=== PATIENT | female | born 1980 | race Caucasian/White ===

== ENCOUNTER → 2016-07-05 | Outpatient (CLI) | payer BC ==
[~2016-07-05] MED LIST: APPL300T PO; CRAN400T3 PO; NORCOTAB PO; PEPT525S PO; ROLA1CHW PO; VITMTA PO
--- NOTE | 2016-07-06 03:45 | REP ---
Clinical: Placental location. Comparison: 05/11/2016 . Findings: Examination demonstrates a single live intrauterine in breech presentation. motion is identified by technologist. Placenta is noted posteriorly and grade one without evidence for placenta previa or abruption. Amniotic fluid volume is normal. Cervix measures 3.4 cm in length and appears closed. No evidence for nuchal cord. Gestational age by first ultrasound 31 weeks 5 days with MU 09/01/2016 . FHR equals 141 beats per minute. Amniotic fluid index equals 12.0 cm. Impression: Posterior grade 1 placenta without evidence for placenta previa or abruption. Signed by Thor Rodríguez MD 07/06/2016 03:36 A
== END ==
LOC: M SMT 13:58
PROVIDERS: ATTEND Advanced Practice Midwife
DX: Z34.82 Encounter for supervision of other normal pregnancy, second trimester (principal)

== ENCOUNTER → 2016-08-01 | Outpatient (REF) | payer BC | LOC: M LAB REF 12:45 | PROVIDERS: ATTEND Specialist | DX: Z34.83 Encounter for supervision of other normal pregnancy, third trimester (principal) ==

== ENCOUNTER 2016-08-27 07:35 | Inpatient (IN) | payer BC ==
[~2016-08-27] VITALS: Ht 162.6 cm; Wt 126.0 kg
[2016-08-27] VITALS (9 sets, daily range): BP systolic 108–143; BP diastolic 52–77
[2016-08-27] MEDS ORDERED: TUMS500C PO (07:39)
[2016-08-27] MEDS ORDERED: TYLE325T5 PO (07:39)
[2016-08-27] MEDS ORDERED: LR 1,000 ML IV SCH ×2 (07:45→11:30)
[2016-08-27] MEDS ORDERED: BICITRA 30ML SOLN UDC PO ONE (07:45)
[2016-08-27] MEDS ORDERED: LR 800 ML IV ONE (07:45)
[2016-08-27] MEDS: PRENATAL VITAMIN TAB PO SCH (09:00)
[2016-08-27 09:05] LABS: MEAN CORPUSCULAR HEMOGLOBIN 32.1 pg (27.0-33.0); MEAN CORPUSCULAR HGB CONC 34.8 g/dl (32.0-36.5); MEAN CORPUSCULAR VOLUME 92.1 fl (80.0-96.0); RED CELL DISTRIBUTION WIDTH 13.6 % (11.5-14.5); WHITE BLOOD COUNT 11.2 K/mm3 (4.0-10.0)
[2016-08-27] MEDS ORDERED: NALOXONE INJ 0.4 MG/1 ML VIAL (J2310) IV PRN ×2 (09:59)
[2016-08-27] MEDS ORDERED: NALBUPHINE HCL 10 MG/ML AMP (J2300) IV PRN ×2 (09:59→11:30)
[2016-08-27] MEDS ORDERED: METOCLOPRAMIDE INJ 10MG/2ML VIAL (J2765) IV PRN (09:59)
[2016-08-27] MEDS ORDERED: ONDANSETRON 4MG/2ML VIAL (J2405) IV PRN ×2 (09:59→11:30)
[2016-08-27] MEDS ORDERED: OXYTOCIN INJ 10 UNITS/ML VIAL (J2590) As Ordered ONE (10:23)
[2016-08-27] MEDS ORDERED: MORPHINE PRES-FREE INJ 10 MG/10 ML VIAL (J2274) As Ordered ONE (10:23)
[2016-08-27] MEDS ORDERED: PHENYLephrine HCL 500 MCG/5 ML (100MCG/ML) SYRINGE (J2370) As Ordered ONE (10:23)
[2016-08-27] MEDS ORDERED: dexameTHASONE 4 MG/ML 1ML VIAL (J1100) As Ordered ONE (10:23)
[2016-08-27] MEDS ORDERED: KETOROLAC 60 MG/2 ML VIAL (J1885) As Ordered ONE (10:23)
[2016-08-27] MEDS ORDERED: ONDANSETRON 4MG/2ML VIAL (J2405) As Ordered ONE (10:23)
[2016-08-27] MEDS ORDERED: ePHEDrine SULFATE 25 MG/5 ML(5MG/ML) SYRINGE As Ordered ONE (10:23)
[2016-08-27] MEDS: LR 1,000 ML IV SCH ×2 (10:53→17:25)
[2016-08-27] MEDS ORDERED: MEASLES,MUMPS,RUBELLA VACCINE INJ (MMR-II) (90707) SC SCH (11:00)
[2016-08-27] MEDS ORDERED: PERCOCET 5MG/325MG TAB PO PRN (11:00)
[2016-08-27] MEDS ORDERED: DOCUSATE SODIUM 100 MG CAP PO PRN (11:00)
[2016-08-27] MEDS ORDERED: OXYTOCIN DRIP 30 UNITS in APPROPRIATE DILUENT 1 EA IV ONE (11:00)
[2016-08-27] MEDS ORDERED: MOM 30ML SUSPENSION UDC PO PRN (11:00)
[2016-08-27] MEDS ORDERED: RHOGAM 300 MCG (1500 IU) INJ (J2790) IM SCH (11:00)
[2016-08-27] MEDS ORDERED: OXYC1TAB23 PO (11:07)
[2016-08-27] MEDS ORDERED: MEPERIDINE INJ 25 MG/ML VIAL (J2175) IV PRN (11:30)
[2016-08-27] MEDS ORDERED: fentaNYL 100 MCG/2 ML INJECTION (J3010) IV PRN (11:30)
--- NOTE | 2016-08-27 13:14 | RO ---
DATE OF PROCEDURE: 08/27/2016 PREPROCEDURE DIAGNOSIS: 39 and 2/7 weeks gestation, breech presentation. POSTPROCEDURE DIAGNOSIS: 39 and 2/7 weeks gestation, breech presentation. PROCEDURE: Primary low transverse section. SURGEON: Dr. Robb Dupont MANAGER VOICE: Dr. Dipti Cuevas ANESTHESIA: Spinal. ESTIMATED BLOOD LOSS: 600 mL. URINE OUTPUT: 25 mL. FINDINGS: 7 pound 11 ounce or 3482 gram female infant, Apgars eight and nine, compound breech presentation. Normal uterus, fallopian tubes and ovaries. DESCRIPTION OF PROCEDURE: The patient was taken to the operating room where spinal anesthesia was induced. She was prepped and draped in sterile fashion in the supine position. A Ta catheter was placed. A Pfannenstiel skin incision was made with the scalpel and carried through to the fascia. The fascia was nicked and extended. The peritoneal cavity was entered. A bladder flap was created. A curvilinear incision was made in the lower uterine segment until clear fluid was noted. This was extended manually. The infant was delivered from the breech presentation using standard maneuvers without difficulty. The cord was doubly clamped and cut. The was handed off to the awaiting nurses. The placenta was expressed. The uterus was exteriorized and cleared of clots and debris. The uterine incision was closed with #0 Vicryl in a running locked fashion. A second imbricating layer of #0 Vicryl was placed. The uterus was placed back in the abdominal cavity. The peritoneum was closed with #2-0 Vicryl. The fascia was closed with #0 Vicryl in a running fashion. The deep layer was irrigated and closed with #3-0 chromic. The skin was closed with #4-0 Monocryl subcuticular sutures. Sponge, instrument and needle counts were correct.
[2016-08-27] MEDS: KETOROLAC 30 MG/ML VIAL (J1885) IV SCH ×2 (17:00→22:42)
[2016-08-28] VITALS (7 sets, daily range): BP systolic 104–140; BP diastolic 50–64
[2016-08-28] MEDS: PERCOCET 5MG/325MG TAB PO PRN ×4 (06:14→23:59)
[2016-08-28] MEDS: KETOROLAC 30 MG/ML VIAL (J1885) IV SCH ×2 (06:15→10:32)
[2016-08-28 07:10] LABS: MEAN CORPUSCULAR HEMOGLOBIN 32.7 pg (27.0-33.0); MEAN CORPUSCULAR HGB CONC 35.2 g/dl (32.0-36.5); MEAN CORPUSCULAR VOLUME 92.9 fl (80.0-96.0); RED CELL DISTRIBUTION WIDTH 13.6 % (11.5-14.5); WHITE BLOOD COUNT 15.3 K/mm3 (4.0-10.0)
[2016-08-28] MEDS: PRENATAL VITAMIN TAB PO SCH (09:00)
[2016-08-28] MEDS: IBUPROFEN 800 MG TAB PO SCH (18:09)
[2016-08-29] MEDS: IBUPROFEN 800 MG TAB PO SCH ×2 (05:29→09:33)
[2016-08-29] MEDS: PERCOCET 5MG/325MG TAB PO PRN (05:29)
[2016-08-29 06:01] VITALS: BP 113/60
[2016-08-29] MEDS ORDERED: IBUP-1114 PO (07:27)
[2016-08-29] MEDS: PRENATAL VITAMIN TAB PO SCH (09:32)
== END 2016-08-29 12:20 | disposition home or self-care (01) | DRG 540 ==
LOC: M LDI 07:35 → M OBS 12:28
PROVIDERS: ADMIT Specialist; ATTEND Specialist
PROC: 10D00Z1 Extraction of Products of Conception, Low, Open Approach (ICD-10-PCS; principal; 2016-08-27 09:30)
DX: O32.1XX0 Maternal care for breech presentation, not applicable or unspecified (principal); Z3A.39 39 weeks gestation of pregnancy; O99.334 Smoking (tobacco) complicating childbirth; F17.210 Nicotine dependence, cigarettes, uncomplicated; O99.284 Endocrine, nutritional and metabolic diseases complicating childbirth; E55.9 Vitamin D deficiency, unspecified; Z37.0 Single live birth

== ENCOUNTER 2016-08-30 19:18 | Emergency (ER) | payer BC ==
[~2016-08-30] VITALS: Ht 162.6 cm; Wt 131.1 kg
[~2016-08-30 19:18] MED LIST changes: +IBUP-1114 PO; +OXYC1TAB23 PO; +TUMS500C PO; +TYLE325T5 PO
[2016-08-30 20:45] LABS: BASO % 0.3 % (0.0-1.0); EOS # 0.2 K/mm3 (0.0-0.50); EOS % 2.5 % (0.0-3.0); LARGE UNSTAINED CELL # 0.1 K/mm3 (0.0-0.4); LARGE UNSTAINED CELL % 1.4 % (0.0-4.0); LYMPH # 2.3 K/mm3 (1.5-4.5); MEAN CORPUSCULAR HGB CONC 33.9 g/dl (32.0-36.5); MEAN CORPUSCULAR VOLUME 94.2 fl (80.0-96.0); MONO # 0.4 K/mm3 (0.0-0.8); MONO % 4.1 % (0.0-5.0); NEUTROPHILS # 6.6 K/mm3 (1.8-7.7); NEUTROPHILS % 68.7 % (36.0-66.0); PLATELET COUNT, AUTOMATED 187 k/mm3 (150-450); RED CELL DISTRIBUTION WIDTH 13.6 % (11.5-14.5); WHITE BLOOD COUNT 9.6 K/mm3 (4.0-10.0)
[2016-08-30 20:56] LABS: INR 0.89
[2016-08-30 21:00] LABS: ANION GAP 8 MEQ/L (8-16); BLOOD UREA NITROGEN 4 MG/DL (7-18); CALCIUM LEVEL 8.1 MG/DL (8.5-10.1); CARBON DIOXIDE LEVEL 25 MEQ/L (21-32); CHLORIDE LEVEL 109 MEQ/L (98-107); CREATININE FOR GFR 0.41 MG/DL (0.55-1.02); GLOMERULAR FILTRATION RATE > 60.0 (>60); GLUCOSE, FASTING 81 MG/DL (70-105); POTASSIUM SERUM 3.9 MEQ/L (3.5-5.1); SODIUM LEVEL 142 MEQ/L (136-145)
[2016-08-30] MEDS ORDERED: ISOVUE-370 76% 100ML VIAL (Q9967) As Ordered ONE (21:03)
--- NOTE | 2016-08-30 21:50 | REPUSA ---
CT of the abdomen and pelvis with contrast Clinical statement: Pain. Status post . Technique: Multiple axial CT images were obtained from the base of the lungs through the floor of the pelvis utilizing 5 mm axial slices after administration of nonionic intravenous contrast. Coronal an d sagittal reconstructions were also obtained. Comparison: 11/17/2015. Findings: Chest: The visualized lung bases are clear. Abdomen: The liver, spleen, pancreas, kidneys, and adrenal glands are unremarkable. The aorta is with in normal limits. There is no evidence of abdominal lymphadenopathy or ascites. Pelvis: The bowel is unremarkable, with no obstructive or inflammatory changes. The urinary bladder i s within normal limits. The uterus is an and large, consistent with post-gravid status. Inflammatory changes from the is appreciated. The other pelvic structures appear grossly intact. There i s no evidence of pelvic lymphadenopathy or ascites. Bones: There are no suspicious osseous abnormalities seen. Impression: 1. Post-gravid uterus is appreciated. Surgical changes from the recent is noted in the ante rior abdominal wall. No focal abnormality to explain the patient's symptoms however. 2. The remainder of the study is within normal limits.
[2016-08-30 22:35] VITALS: BP 148/84
== END 2016-08-30 22:41 | disposition home or self-care (01) ==
LOC: M ED 22:10
DX: S30.1XXA Contusion of abdominal wall, initial encounter (principal); Z98.890 Other specified postprocedural states
CPT/HCPCS: 74177; 80048; 85025; 85610; 85730; 86850; 86900; 86901; 99282; Q9967

== ENCOUNTER → 2017-04-16 | Outpatient (CLI) | payer BC ==
[2017-04-16 19:47] LABS: FREE T4 1.06 NG/DL (0.76-1.46)
[2017-04-16 19:48] LABS: BASO % 0.3 % (0.0-1.0); EOS # 0.2 10^3/uL (0.0-0.50); EOS % 1.8 % (0.0-3.0); IMMATURE GRANULOCYTE % 0.4 % (0-0); LYMPH # 2.6 10^3/uL (1.5-4.5); MEAN CORPUSCULAR HEMOGLOBIN 31.9 pg (27.0-33.0); MEAN CORPUSCULAR HGB CONC 34.3 g/dl (32.0-36.5); MONO # 0.4 10^3/uL (0.0-0.8); MONO % 3.9 % (0.0-5.0); NEUTROPHILS # 6.9 10^3/uL (1.8-7.7); NEUTROPHILS % 67.6 % (36.0-66.0); PLATELET COUNT, AUTOMATED 233 10^3/uL (150-450); RED CELL DISTRIBUTION WIDTH 12.4 % (11.5-14.5); WHITE BLOOD COUNT 10.1 10^3/uL (4.0-10.0)
[2017-04-17 14:32] LABS: HBsAg Prenatal NEGATIVE (NEGATIVE)
== END ==
LOC: M SMT 13:56
PROVIDERS: ATTEND Specialist
DX: Z34.81 Encounter for supervision of other normal pregnancy, first trimester (principal); Z3A.09 9 weeks gestation of pregnancy

== ENCOUNTER → 2017-06-05 | Outpatient (CLI) | payer BC | LOC: M SMT 07:57 | DX: O30.042 Twin pregnancy, dichorionic/diamniotic, second trimester (principal); Z3A.19 19 weeks gestation of pregnancy | CPT/HCPCS: 76811 ==

== ENCOUNTER → 2017-07-11 | Outpatient (CLI) | payer BC | LOC: M SMT 07:55 | DX: Z36.2 Encounter for other antenatal screening follow-up (principal); O30.042 Twin pregnancy, dichorionic/diamniotic, second trimester; Z3A.24 24 weeks gestation of pregnancy | CPT/HCPCS: 76811 ==

== ENCOUNTER → 2017-08-06 | Outpatient (CLI) | payer BC ==
[2017-08-06 12:14] LABS: BASO % 0.3 % (0.0-1.0); EOS # 0.1 10^3/uL (0.0-0.50); HEMATOCRIT 33.1 % (36.0-47.0); HEMOGLOBIN 11.2 g/dl (12.0-16.0); IMMATURE GRANULOCYTE % 0.6 % (0-3.0); LYMPH # 1.5 10^3/uL (1.5-4.5); LYMPH % 15.4 % (24.0-44.0); MEAN CORPUSCULAR HEMOGLOBIN 32.6 pg (27.0-33.0); MEAN CORPUSCULAR HGB CONC 33.8 g/dl (32.0-36.5); MEAN CORPUSCULAR VOLUME 96.2 fl (80.0-96.0); MONO # 0.5 10^3/uL (0.0-0.8); MONO % 4.7 % (0.0-5.0); NEUTROPHILS # 7.6 10^3/uL (1.8-7.7); PLATELET COUNT, AUTOMATED 146 10^3/uL (150-450); RED BLOOD COUNT 3.44 10^6/uL (4.00-5.40); RED CELL DISTRIBUTION WIDTH 13.1 % (11.5-14.5); WHITE BLOOD COUNT 9.8 10^3/uL (4.0-10.0)
[2017-08-06 12:28] LABS: GLUCOSE CHALLENGE TEST 1 HOUR 119 MG/DL (LESS THAN 140)
[2017-08-07 10:56] LABS: RUBELLA IgG QUALITATIVE IMMUNE (IMMUNE)
[2017-08-07 11:01] LABS: HBsAg Prenatal NEGATIVE (NEGATIVE)
[2017-08-07 11:25] LABS: HIV 1&2 SCREEN CENTAUR NEGATIVE (NEGATIVE)
[2017-08-07 13:11] LABS: HEPATITIS C VIRUS ABY INDEX 0.1 INDEX (<0.8)
== END ==
LOC: M WUC 09:16
DX: O30.042 Twin pregnancy, dichorionic/diamniotic, second trimester (principal)

== ENCOUNTER → 2017-08-14 | Outpatient (CLI) | payer BC | LOC: M SMT 08:19 | DX: O30.042 Twin pregnancy, dichorionic/diamniotic, second trimester (principal) ==

== ENCOUNTER 2017-08-16 19:52 | Outpatient (CLI) | payer BC ==
[2017-08-16] MEDS: LR 1,000 ML IV (21:14)
[2017-08-16] MEDS: PENICILLIN G POTASSIUM IV 5 MU in D5W MINI-BAG PLUS 100 ML IV (21:15)
[2017-08-16] MEDS: BETAMETHASONE SOLUSPAN 6MG/ML INJ 5ML (J0702) IM (21:15)
== END 2017-08-16 22:10 | disposition other institution (70) ==
LOC: M LDO 19:52
DX: O30.043 Twin pregnancy, dichorionic/diamniotic, third trimester (principal); O42.913 Preterm premature rupture of membranes, unspecified as to length of time between rupture and onset of labor, third trimester; O09.523 Supervision of elderly multigravida, third trimester; O09.893 Supervision of other high risk pregnancies, third trimester; Z3A.29 29 weeks gestation of pregnancy
CPT/HCPCS: J0702

== ENCOUNTER → 2018-01-06 | Outpatient (CLI) | payer BC | LOC: M OUTALCOH 08:16 | DX: Z03.89 Encounter for observation for other suspected diseases and conditions ruled out (principal) ==

== ENCOUNTER 2018-02-04 16:00 | Outpatient (RCR) | payer BC | END 2018-03-02 | LOC: M OUTALCOH 02-06 16:00 | DX: F10.10 Alcohol abuse, uncomplicated (principal) ==

== ENCOUNTER → 2018-02-27 | Outpatient (CLI) | payer BC ==
[2018-02-27 13:53] LABS: BASO # 0.1 10^3/uL (0.0-0.2); BASO % 0.7 % (0.0-1.0); EOS # 0.3 10^3/uL (0.0-0.50); EOS % 3.1 % (0.0-3.0); HEMATOCRIT 42.3 % (36.0-47.0); HEMOGLOBIN 14.3 g/dl (12.0-15.5); IMMATURE GRANULOCYTE % 0.6 % (0-3.0); LYMPH # 1.7 10^3/uL (1.5-4.5); LYMPH % 19.1 % (24.0-44.0); MEAN CORPUSCULAR HEMOGLOBIN 32.2 pg (27.0-33.0); MEAN CORPUSCULAR HGB CONC 33.8 g/dl (32.0-36.5); MEAN CORPUSCULAR VOLUME 95.3 fl (80.0-96.0); MONO # 0.5 10^3/uL (0.0-0.8); MONO % 5.5 % (0.0-5.0); NEUTROPHILS # 6.4 10^3/uL (1.8-7.7); PLATELET COUNT, AUTOMATED 233 10^3/uL (150-450); RED BLOOD COUNT 4.44 10^6/uL (4.00-5.40); RED CELL DISTRIBUTION WIDTH 12.2 % (11.5-14.5)
[2018-02-27 14:11] LABS: ALBUMIN/GLOBULIN RATIO 1.48 (1.00-1.93); ALKALINE PHOSPHATASE 89 U/L (45-117); ALT/SGPT 24 U/L (12-78); ANION GAP 8 MEQ/L (8-16); AST/SGOT 11 U/L (7-37); BILIRUBIN,TOTAL 0.3 MG/DL (0.2-1.0); BLOOD UREA NITROGEN 11 MG/DL (7-18); CALCIUM LEVEL 8.9 MG/DL (8.5-10.1); CARBON DIOXIDE LEVEL 24 MEQ/L (21-32); CHLORIDE LEVEL 110 MEQ/L (98-107); CHOLESTEROL LEVEL 148 MG/DL (<200); CHOLESTEROL RISK RATIO 3.609 (<5); CREATININE FOR GFR 0.59 MG/DL (0.55-1.30); GLOMERULAR FILTRATION RATE > 60.0 (>60); GLUCOSE, FASTING 85 MG/DL (70-100); HDL CHOLESTEROL 41 MG/DL (>40); LDL CHOLESTEROL 73 MG/DL (<100); NON-HDL-C 107 MG/DL; POTASSIUM SERUM 4.3 MEQ/L (3.5-5.1); SODIUM LEVEL 142 MEQ/L (136-145); TOTAL PROTEIN 6.7 GM/DL (6.4-8.2); TRIGLYCERIDES LEVEL 171 MG/DL (<150)
[2018-02-27 14:14] LABS: TOTAL 25(OH) VITAMIN D 20.1 NG/ML (30.0-100.0)
[2018-03-03 00:06] LABS: 17 HYDROXY PROGESTERONE 114 ng/dL (.); TESTOSTERONE FREE (DIRECT) 2.9 pg/mL (0.0-4.2)
== END ==
LOC: M WUC 08:51
DX: R53.83 Other fatigue (principal)
CPT/HCPCS: 84403

== ENCOUNTER 2018-03-05 14:50 | Outpatient (RCR) | payer BC | END 2018-04-02 | LOC: M OUTALCOH 03-14 15:30 | DX: F10.10 Alcohol abuse, uncomplicated (principal) ==

== ENCOUNTER → 2018-03-17 | Outpatient (REF) | payer BC ==
[2018-03-19 15:03] LABS: HPV HYBRID CAPTURE II Negative (Negative)
== END ==
LOC: M LAB REF 18:25
DX: Z12.4 Encounter for screening for malignant neoplasm of cervix (principal)
CPT/HCPCS: G0123

== ENCOUNTER → 2018-09-12 | Outpatient (REF) | payer BC ==
[~2018-09-12] MED LIST changes: +HYDR-3715 PO; -NORCOTAB PO
== END ==
LOC: M SFHCLERA 12:29
PROVIDERS: ATTEND Physician Assistant
DX: J02.9 Acute pharyngitis, unspecified (principal)

== ENCOUNTER 2018-12-15 10:49 | Emergency (ER) | payer BC ==
[~2018-12-15] VITALS: Ht 162.6 cm; Wt 115.9 kg
[~2018-12-15 10:49] MED LIST changes: -CIPR-249 PO; -FLAG500T PO
[2018-12-15 11:47] LABS: BASO # 0.1 10^3/uL (0.0-0.2); BASO % 0.7 % (0.0-1.0); EOS # 0.3 10^3/uL (0.0-0.50); HEMATOCRIT 44.7 % (36.0-47.0); LYMPH # 2.1 10^3/uL (1.5-4.5); LYMPH % 18.9 % (24.0-44.0); MEAN CORPUSCULAR HEMOGLOBIN 31.1 pg (27.0-33.0); MEAN CORPUSCULAR HGB CONC 33.6 g/dl (32.0-36.5); MEAN CORPUSCULAR VOLUME 92.5 fl (80.0-96.0); MONO # 0.6 10^3/uL (0.0-0.8); MONO % 5.6 % (0.0-5.0); NEUTROPHILS # 7.9 10^3/uL (1.8-7.7); NEUTROPHILS % 71.3 % (36.0-66.0); PLATELET COUNT, AUTOMATED 223 10^3/uL (150-450); RED BLOOD COUNT 4.83 10^6/uL (4.00-5.40); WHITE BLOOD COUNT 11.1 10^3/uL (4.0-10.0)
[2018-12-15 12:19] LABS: ALBUMIN 3.9 GM/DL (3.2-5.2); ALT/SGPT 17 U/L (12-78); BILIRUBIN,DIRECT < 0.1 MG/DL (0.0-0.2); BILIRUBIN,TOTAL 0.3 MG/DL (0.2-1.0); BLOOD UREA NITROGEN 7 MG/DL (7-18); CALCIUM LEVEL 9.1 MG/DL (8.5-10.1); CARBON DIOXIDE LEVEL 27 MEQ/L (21-32); CHLORIDE LEVEL 108 MEQ/L (98-107); CREATININE FOR GFR 0.68 MG/DL (0.55-1.30); GLOMERULAR FILTRATION RATE > 60.0 (>60); GLUCOSE, FASTING 97 MG/DL (70-100); LIPASE 90 U/L (73-393); POTASSIUM SERUM 4.4 MEQ/L (3.5-5.1); SODIUM LEVEL 141 MEQ/L (136-145); TOTAL PROTEIN 6.7 GM/DL (6.4-8.2)
[2018-12-15] MEDS ORDERED: NS 1,000 ML IV ONE (13:30)
[2018-12-15] MEDS ORDERED: ISOVUE-370 76% 100ML VIAL (Q9967) As Ordered ONE (13:40)
--- NOTE | 2018-12-15 14:11 | REP ---
CT of the abdomen and pelvis with IV contrast, without bowel contrast: Comparison is 08/30/2016. The visualized lung alejo are unremarkable. The hepatic parenchyma is homogeneous and unremarkable. There are surgical clips in the gallbladder fossa. This is unchanged. The pancreas and spleen are unremarkable. The adrenals, kidneys and abdominal aorta are unremarkable. There is no bowel distension or obstruction. The mesentery is unremarkable. The appendix has a normal appearance. There is wall thickening of the colon from the cecum to the rectosigmoid colon. This is compatible with colitis in the appropriate clinical setting. There is no ascites. Pelvis: The uterus, adnexa and bladder are unremarkable. There is no ascites or adenopathy. The appendix is unremarkable. Impression: There are findings compatible with colitis in the appropriate clinical setting. The appendix is unremarkable. There is a cholecystectomy. The uterus and adnexa are unremarkable. The adrenals and kidneys are unremarkable. Electronically Signed by Nael Brito MD 12/15/2018 02:03 P
[2018-12-15] MEDS ORDERED: CIPR-249 PO (14:47)
[2018-12-15] MEDS ORDERED: FLAG500T PO (14:47)
[2018-12-15 14:53] VITALS: BP 130/52
== END 2018-12-15 15:12 | disposition home or self-care (01) ==
LOC: M ED 10:49
DX: K52.9 Noninfective gastroenteritis and colitis, unspecified (principal); F17.210 Nicotine dependence, cigarettes, uncomplicated
CPT/HCPCS: 36415; 74177; 80048; 80076; 81001; 83690; 84702; 85025; 99284; Q9967

== ENCOUNTER → 2018-12-15 | Outpatient (CLI) | payer BC ==
[~2018-12-15] MED LIST changes: +CIPR-249 PO; +FLAG500T PO
--- NOTE | 2018-12-15 10:11 | REP ---
KUB: Two views. History: Abdomen pain. Right lower quadrant. Nausea. Findings: The bowel gas pattern is normal. There are clips in right upper quadrant post cholecystectomy. Psoas margins and flank stripes are intact. There is no evidence of mass, organomegaly, or pathologic calcification. Impression: Clips in right upper quadrant. Otherwise negative KUB. Electronically Signed by Grant eLe MD 12/15/2018 10:02 A
== END ==
LOC: M LRY 09:45
PROVIDERS: ATTEND Nurse Practitioner Family
DX: R10.9 Unspecified abdominal pain (principal)

== ENCOUNTER → 2018-12-16 | Outpatient (CLI) | payer BC ==
[~2018-12-16] MED LIST changes: +CIPR-249 PO; +FLAG500T PO
[2018-12-19 00:07] LABS: Lyme Disease IgG/IgM Antibodie <0.91 ISR (0.00-0.90); Lyme Disease IgM Ab Quantitati <0.80 index (0.00-0.79)
== END ==
LOC: M WUC 15:33
PROVIDERS: ATTEND Physician Assistant
DX: S80.269A Insect bite (nonvenomous), unspecified knee, initial encounter (principal); Y92.9 Unspecified place or not applicable

== ENCOUNTER 2019-03-09 08:55 | Day surgery (SDC) | payer BC ==
[~2019-03-09] VITALS: Ht 162.6 cm; Wt 109.8 kg
[~2019-03-09 08:55] MED LIST changes: +NS 1,000 ML IV ONE
[2019-03-09] MEDS ORDERED: PROPOFOL 200 MG/20 ML VIAL As Ordered ONE ×2 (10:54→11:16)
[2019-03-09] MEDS ORDERED: LIDOCAINE 2% INJ 100 MG/5 ML SDV (FOR ANES.) As Ordered ONE (10:54)
--- NOTE | 2019-03-09 11:35 | ROOR ---
Patient Name: Luiza Trevizo Procedure Date: 03/09/2019 11:02 AM Date of : 1980 Age: 38 Room: [facility] Gender: Female Note Status: Finalized Procedure: Total Colonoscopy to Cecum Indications: Clinically significant diarrhea of unexplained origin, Abnormal CT of the GI tract Providers: Elliot Powell MD Referring MD: Shelly Zacarias MD Requesting Provider: Medicines: Monitored Anesthesia Care Complications: No immediate complications. Procedure: Pre-Anesthesia Assessment: - The heart rate, respiratory rate, oxygen saturations, blood pressure, adequacy of pulmonary ventilation, and response to care were monitored throughout the procedure. The Colonoscope was introduced through the anus and advanced to the cecum, identified by appendiceal orifice and ileocecal valve. The colonoscopy was performed without difficulty. The patient tolerated the procedure well. The quality of the bowel preparation was excellent. Findings: The perianal and digital rectal examinations were normal. Non-bleeding internal hemorrhoids were found during retroflexion. The hemorrhoids were small and Grade I (internal hemorrhoids that do not prolapse). No other significant abnormalities were identified in a careful examination of the remainder of the colon. The exam was otherwise without abnormality on direct and retroflexion views. Impression: - Non-bleeding internal hemorrhoids. - The examination was otherwise normal on direct and retroflexion views. - No specimens collected. - The exam was otherwise normal to the cecum. Recommendation: - Patient has a contact number available for emergencies. The signs and symptoms of potential delayed complications were discussed with the patient. Return to normal activities tomorrow. Written discharge instructions were provided to the patient. - High fiber diet. - Discharge patient to home. - Continue present medications. - Repeat colonoscopy at age 50 for screening purposes. - Return to referring physician. - The findings and recommendations were discussed with the patient's family. Elliot Powell MD Elliot Powell MD 03/09/2019 11:34:53 AM Electronically signed by Elliot Powell MD Number of Addenda: 0 Note Initiated On: 03/09/2019 11:02 AM Estimated Blood Loss: Estimated blood loss: none.
[2019-03-09 11:59] VITALS: BP 106/59
== END 2019-03-09 12:01 | disposition home or self-care (01) ==
LOC: M OPP 08:55
PROVIDERS: ATTEND Internal Medicine Gastroenterology
DX: K64.0 First degree hemorrhoids (principal); R19.7 Diarrhea, unspecified; R93.3 Abnormal findings on diagnostic imaging of other parts of digestive tract; F17.210 Nicotine dependence, cigarettes, uncomplicated

== ENCOUNTER 2022-12-12 11:40 | Emergency (ER) | payer BC, MEDICAID, SELFPAY ==
[~2022-12-12] VITALS: Ht 162.6 cm; Wt 126.4 kg
[~2022-12-12 11:40] MED LIST changes: -NS 1,000 ML IV ONE
[2022-12-12] MEDS ORDERED: IBUP200C25 PO (12:00)
[2022-12-12] MEDS ORDERED: ACETAMINOPHEN TAB 650MG DOSE (2X325MG) PO ONE (14:25)
[2022-12-12 16:56] VITALS: BP 146/88; TEMP 98.2; O2SAT 100
== END 2022-12-12 17:00 | disposition home or self-care (01) ==
LOC: M ED 11:40
DX: S93.402A Sprain of unspecified ligament of left ankle, initial encounter (principal); X50.1XXA Overexertion from prolonged static or awkward postures, initial encounter; Y93.89 Activity, other specified

== ENCOUNTER → 2023-01-28 | Outpatient (CLI) | payer MEDICAID ==
[~2023-01-28] MED LIST changes: +IBUP200C25 PO
== END ==
LOC: M SOG 08:06
PROVIDERS: ATTEND Physician Assistant
DX: S93.402D Sprain of unspecified ligament of left ankle, subsequent encounter (principal); M79.89 Other specified soft tissue disorders